=== PATIENT | female | born 1980 | race Native Hawaiian/Other Pacific Islander ===

== ENCOUNTER 2018-03-15 19:51 | Emergency (ER) | payer MEDICAID ==
[2018-03-15 20:06] VITALS: BP 129/81
--- NOTE | 2018-03-15 20:15 | ED Physician Documentation ---
PD HPI LOWER EXT INJURY - Stated complaint Stated Complaint: L ANKLE PX - Chief complaint Chief Complaint: Ext Problem - History obtained from History obtained from: Patient - History of Present Illness PD HPI LOW EXT INJURY LOCATION: Left, Ankle Type of injury: Twist Where injury occurred: Home Timing - onset: Today, Yesterday Timing - details: Abrupt onset Worsened by: Moving, Palpating Similar symptoms before: No diagnosis Recently seen: Not recently seen - Additional information Additional information: patient is a 37 year old female with no significant past medical history who is presenting to the emergency department for ankle pain. Patient states that she originally twisted her ankle yesterday walking down the steps. patient reports that again today she did the same thing hurting the outside of her left ankle. patient denies any other trauma. Review of Systems Ten Systems: 10 systems reviewed and negative Musculoskeletal: reports: Extremity pain, Joint pain, Extremity swelling PD PAST MEDICAL HISTORY - Past Medical History Past Medical History: No - Past Surgical History Past Surgical History: No - Present Medications Home Medications: Ambulatory Orders Medication Instructions Recorded Confirmed No Known Home Medications [No 03/15/18 03/15/18 Known Home Medications] - Allergies Allergies/Adverse Reactions: Allergies Allergy/AdvReac Type Severity Reaction Status Date / Time duloxetine [From Cymbalta] Allergy Hives Verified 03/15/18 20:02 Penicillins Allergy Hives Verified 03/15/18 20:01 - Social History Does the pt smoke?: No Smoking Status: Never smoker Does the pt drink ETOH?: No Does the pt have substance abuse?: No - Immunizations Immunizations are current?: Yes PD ED PE NORMAL - Vitals Vital signs reviewed: Yes - General General: Alert and oriented X 3 - HEENT HEENT: Atraumatic - Cardiac Cardiac: RRR - Respiratory Respiratory: No respiratory distress - Abdomen Abdomen: Non distended - Derm Derm: Normal color - Neuro Neuro: Alert and oriented X 3 Eye Opening: Spontaneous PD ED PE EXPANDED - Extremities Extremities: Left ankle (tenderness to palpation over left lateral maleolus ) Results - Vitals Vitals: Vital Signs - 24 hr 03/15/18 19:53 Temperature 36.5 C Heart Rate 83 Respiratory 17 Rate Blood Pressure 129/81 H O2 Saturation 97 Oxygen O2 Source Room air - Rads (name of study) left ankle x-ray Radiology: Final report received (normal ), EMP read contemporaneously PD MEDICAL DECISION MAKING - ED course Complexity details: reviewed old records, reviewed results, re-evaluated patient , considered differential, d/w patient ED course: Patient was seen and examined at bedside. Patient could not be ruled out by [place] ankle rules. patient was sent for imaging. When patient returned the results were reviewed. there was no acute fracture or dislocation. Patient was placed in an kirby bandage and was stable for discharge with outpatient follow up. Departure - Departure Disposition: 01 Home, Self Care Clinical Impression: Ankle sprain Condition: Good Instructions: ED Sprain Ankle Follow-Up: primary,care provider [Other] - As Needed Comments: Your diagnostics today were within normal limits. there is no acute fracture or dislocation. You should ice your ankle at least 4 times a day. You can take motrin or tylenol as needed for pain. You should elevate your ankle as well, and wear the kirby bandage for support. You should follow up with your doctor if your symptoms persist. you may return to the emergency department at any time for new, worsening or uncontrollable symptoms.
[2018-03-15] MEDS ORDERED: IBUPROFEN 600 MG TABLET PO STA (20:22)
--- NOTE | 2018-03-15 20:43 | XRAY Preliminary Report ---
Exam: XR ANKLE 3 VIEW LT IMPRESSION: 1. No fracture or malalignment. 2. Ankle mortise intact. 3. Mild ankle swelling noted. 4. If patient remains symptomatic, recommend radiographs in 10-14 days. [facility] SITE ID: [id number]
--- NOTE | 2018-03-15 20:46 | XRAY Report ---
EXAM: LEFT ANKLE RADIOGRAPHY EXAM DATE: 03/15/2018 08:21 PM. CLINICAL HISTORY: Twisted the ankle. COMPARISON: None. TECHNIQUE: 3 views. FINDINGS: Bones: Normal. No fractures or bone lesions. Joints: Normal. No effusion. No subluxations. The ankle mortise is normally aligned. Soft Tissues: Mild ankle swelling noted. IMPRESSION: 1. No fracture or malalignment. 2. Ankle mortise intact. 3. Mild ankle swelling noted. 4. If patient remains symptomatic, recommend radiographs in 10-14 days. [facility] Referring Provider Line: [phone] SITE ID: [id number]
== END 2018-03-15 20:37 | disposition home or self-care (01) ==
LOC: ED 19:51
DX: S93.402A Sprain of unspecified ligament of left ankle, initial encounter (principal); X50.1XXA Overexertion from prolonged static or awkward postures, initial encounter; Y92.009 Unspecified place in unspecified non-institutional (private) residence as the place of occurrence of the external cause
CPT/HCPCS: 73610; 99283; A9270

== ENCOUNTER 2018-05-08 23:18 | Emergency (ER) | payer MEDICAID ==
[2018-05-08 23:31] VITALS: BP 116/69
--- NOTE | 2018-05-09 01:26 | ED Physician Documentation ---
PD HPI HEENT - Stated complaint Stated Complaint: THROAT PX - Chief complaint Chief Complaint: Heent - History obtained from History obtained from: Patient - History of Present Illness Timing - onset: How many days ago (5) Timing - details: Gradual onset Location: Throat Worsens: Swalllowing Recently seen: Not recently seen - Additional information Additional information: c/o five days of gradually worsening sore throat, worse with swallowing. mild cough. inadequate relief of sore throat with OTC medications. Review of Systems Constitutional: denies: Fever Nose: denies: Congestion, Sinus pressure / pain Throat: reports: Sore throat Respiratory: reports: Cough (mild) PD PAST MEDICAL HISTORY - Past Medical History Past Medical History: No - Past Surgical History Past Surgical History: No - Present Medications Home Medications: Ambulatory Orders Medication Instructions Recorded Confirmed No Known Home Medications [No 03/15/18 03/15/18 Known Home Medications] - Allergies Allergies/Adverse Reactions: Allergies Allergy/AdvReac Type Severity Reaction Status Date / Time duloxetine [From Cymbalta] Allergy Hives Verified 05/08/18 23:31 Penicillins Allergy Hives Verified 05/08/18 23:31 - Social History Does the pt smoke?: No Smoking Status: Never smoker Does the pt drink ETOH?: No Does the pt have substance abuse?: No - Immunizations Immunizations are current?: Yes PD ED PE NORMAL - Vitals Vital signs reviewed: Yes - General General: Alert and oriented X 3, No acute distress, Well developed/nourished - HEENT HEENT: Ears normal, Moist mucous membranes, Other (mild posterior oropharyngeal erythema without exudate or edema) - Neck Neck: Supple, no meningeal sign Results - Vitals Vitals: Vital Signs - 24 hr 05/08/18 23:28 Temperature 36.4 C L Heart Rate 83 Respiratory 17 Rate Blood Pressure 116/69 O2 Saturation 97 Oxygen O2 Source Room air - Labs Labs: Laboratory Tests 05/08/18 23:34 Group A Strep Rapid Negative PD MEDICAL DECISION MAKING - ED course Complexity details: reviewed results, considered differential, d/w patient - Sepsis Event Vital Signs: Vital Signs - 24 hr 05/08/18 23:28 Temperature 36.4 C L Heart Rate 83 Respiratory 17 Rate Blood Pressure 116/69 O2 Saturation 97 Oxygen O2 Source Room air Departure - Departure Disposition: 01 Home, Self Care Clinical Impression: Pharyngitis Condition: Good Instructions: ED Pharyngitis Viral Report Pending Discharge Date/Time: 05/09/18 02:04
[2018-05-09] MEDS ORDERED: DEXAMETHASONE 10 MG/ML VIAL PO STA (01:41)
[2018-05-09] MEDS ORDERED: HYDROcod/ACET 5/325 Prepack 4 PO STA (01:41)
== END 2018-05-09 02:04 | disposition home or self-care (01) ==
LOC: ED 23:18
DX: J02.9 Acute pharyngitis, unspecified (principal)
CPT/HCPCS: 87070; 87430; 99283

== ENCOUNTER 2018-08-14 04:00 | Emergency (ER) | payer MEDICAID ==
[2018-08-14 04:22] LABS: BILIRUBIN,URINE NEGATIVE (NEGATIVE); GLUCOSE, URINE (UA) NEGATIVE (NEGATIVE); KETONES,URINE (UA) NEGATIVE (NEGATIVE); LEUKOCYTE ESTERASE, URINE NEGATIVE (NEGATIVE); NITRITE,URINE NEGATIVE (NEGATIVE); OCCULT BLOOD,URINE TRACE-INTA (NEGATIVE); PH,URINE 5.5 PH (5.0-7.5); PROTEIN,URINE NEGATIVE (NEGATIVE); UROBILINOGEN,URINE 0.2 (NORMAL) E.U./dL (NORMAL)
[2018-08-14 04:24] LABS: CLARITY,URINE CLEAR (CLEAR); HCG UR QUAL NEGATIVE
[2018-08-14] MEDS ORDERED: KETOROLAC 60 MG/2 ML VIAL IVP STA (04:38)
--- NOTE | 2018-08-14 04:41 | ED Physician Documentation ---
PD HPI ABD PAIN - Stated complaint Stated Complaint: R SIDE PAIN - Chief complaint Chief Complaint: Abd Pain - History obtained from History obtained from: Patient - History of Present Illness Timing - onset: Enter time (0100), Today Timing - duration: Hours Timing - details: Abrupt onset, Still present Quality: Sharp, Pain Location: RLQ Radiation: No: Chest, Right flank Improved by: Laying still Worsened by: Moving, Position, Palpation Associated symptoms: Nausea. No: Vomiting Similar symptoms before: Has not had sx before Recently seen: Not recently seen - Additional information Additional information: 38-year-old female with a history of thyroid cancer and status post cholecystectomy has developed acute right lower quadrant abdominal pain early this morning while sitting and watching television. She states that the pain is worse if she is up and around it is present all the time and is about a 9 out of 10 when she is at rest. She states that she has had some pain in her upper abdomen every time that she eats for the past week. This is accompanied by gas and eructations. Review of Systems Constitutional: denies: Fever Eyes: denies: Decreased vision Ears: denies: Ear pain Nose: denies: Congestion Throat: denies: Sore throat Cardiac: denies: Chest pain / pressure, Palpitations Respiratory: denies: Dyspnea, Cough GI: reports: Abdominal Pain. denies: Vomiting, Constipation, Diarrhea : denies: Dysuria, Frequency Skin: denies: Rash Musculoskeletal: denies: Neck pain, Back pain, Extremity pain Neurologic: denies: Generalized weakness, Focal weakness, Numbness PD PAST MEDICAL HISTORY - Past Medical History Past Medical History: Yes Cardiovascular: None Respiratory: None Neuro: None Endocrine/Autoimmune: Other GI: None [place] ROUTEMAN: None : None HEENT: None Psych: None Musculoskeletal: None Derm: None Other Past Medical History: THYROID CANCER.... 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 - Present Medications Home Medications: Ambulatory Orders Medication Instructions Recorded Confirmed No Known Home Medications 03/15/18 03/15/18 - Allergies Allergies/Adverse Reactions: Allergies Allergy/AdvReac Type Severity Reaction Status Date / Time duloxetine [From Cymbalta] Allergy Hives Verified 05/08/18 23:31 Penicillins Allergy Hives Verified 05/08/18 23:31 tramadol AdvReac Unknown Verified 08/14/18 04:11 - Social History Does the pt smoke?: No Smoking Status: Never smoker Does the pt drink ETOH?: No Does the pt have substance abuse?: No - Immunizations Immunizations are current?: Yes - POLST Patient has POLST: No PD ED PE NORMAL - Vitals Vital signs reviewed: Yes (hypertensive) - General General: Alert and oriented X 3, No acute distress, Well developed/nourished, Other (38 y/o obese female laying on her left side in a position.) - HEENT HEENT: Atraumatic, PERRL, EOMI - Neck Neck: Supple, no meningeal sign, No bony TTP - Cardiac Cardiac: RRR, No murmur - Respiratory Respiratory: No respiratory distress, Clear bilaterally - Abdomen Abdomen: Soft, Other (There is specific right lower quadrant tenderness to palpation that is reproducible. There is no epigastric tenderness and there is no right upper quadrant tenderness. 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, No motor deficit, No sensory deficit, Normal speech Eye Opening: Spontaneous Motor: Obeys Commands Verbal: Oriented GCS Score: 15 - Psych Psych: Normal mood, Normal affect Results - Vitals Vitals: Vital Signs - 24 hr 08/14/18 04:08 Temperature 36.8 C Heart Rate 81 Respiratory 17 Rate Blood Pressure 129/99 H O2 Saturation 99 Oxygen O2 Source Room air - Labs Labs: Laboratory Tests 08/14/18 04:19 Urine Color YELLOW Urine Clarity CLEAR Urine pH 5.5 Ur Specific [place] 1.020 Urine Protein NEGATIVE Urine Glucose (UA) NEGATIVE Urine Ketones NEGATIVE Urine Occult Blood TRACE-INTA Urine Nitrite NEGATIVE Urine Bilirubin NEGATIVE Urine Urobilinogen 0.2 (NORMAL) Ur Leukocyte Esterase NEGATIVE Ur Microscopic Review NOT INDICATED Urine Culture Comments NOT INDICATED Urine HCG, Qual NEGATIVE - Rads (name of study) CT abd/pel without Radiology: Prelim report reviewed (Impression: 1. No urinary tract stones or obstruction. 2. post cholecystectomy.), EMP read indepedently, See rad report Procedures - Bedside sono Bedside sono by EMP: With use of bedside ultrasound the right kidney is imaged and it is sonographically nontender and without evidence of hydronephrosis. PD MEDICAL DECISION MAKING - ED course Complexity details: reviewed results, re-evaluated patient, considered differential, d/w patient, d/w family ED course: 38-year-old female arrives here with her adult son with right lower quadrant abdominal pain. She has not had fever or vomiting her pain was sudden in onset but she does not have radiating pain to the flank and she does not have evidence of hydronephrosis on bedside examination. She is tender specifically in the right lower quadrant and CT scanning of the abdomen and pelvis is undertaken to rule out appendicitis. She is administered Toradol 30 mg intravenously. She has little relief with the toradal and she is administered dilaudid with some improvement. CT scan is without evidence for appendicitis and pelvic ultrasound is undertaken to rule out torsion. Care is turned over to Dr. Day at shift change. - Sepsis Event Vital Signs: Vital Signs - 24 hr 08/14/18 04:08 Temperature 36.8 C Heart Rate 81 Respiratory 17 Rate Blood Pressure 129/99 H O2 Saturation 99 Oxygen O2 Source Room air
[2018-08-14] MEDS ORDERED: KETOROLAC 30 MG/ML VIAL ONE (04:49)
[2018-08-14 04:51] LABS: BASOPHILS # (AUTO) 0.1 10^3/uL (0.0-0.1); BASOPHILS % (AUTO) 1.1 %; EOSINOPHILS # (AUTO) 0.2 10^3/uL (0.0-0.7); HGB - HEMOGLOBIN 14.8 g/dL (12.0-16.0); LYMPHOCYTES # (AUTO) 3.8 10^3/uL (1.5-3.5); MEAN CORPUSCULAR HEMOGLOBIN 29.7 pg (27.0-31.0); MEAN CORPUSCULAR HGB CONC 34.1 g/dL (32.0-36.0); MEAN CORPUSCULAR VOLUME 87.1 fL (81.0-99.0); MEAN PLATELET VOLUME 7.9 fL (7.9-10.8); MONOCYTES # (AUTO) 0.7 10^3/uL (0.0-1.0); NEUTROPHILS # (AUTO) 6.3 10^3/uL (1.5-6.6); NEUTROPHILS % (AUTO) 56.9 %; PLT - PLATELET COUNT 237 10^3/uL (130-450); RED BLOOD COUNT 4.97 10^6/uL (4.20-5.40); RED CELL DISTRIBUTION WIDTH 16.3 % (12.0-15.0); WHITE BLOOD COUNT 11.1 x10^3/uL (4.8-10.8)
[2018-08-14 05:02] LABS: ALBUMIN 3.8 g/dL (3.2-5.5); ALBUMIN/GLOBULIN RATIO 1.2 (1.0-2.2); BILIRUBIN,TOTAL 0.5 mg/dL (0.2-1.0); CALCIUM 8.3 mg/dL (8.5-10.3); CREATININE 0.8 mg/dL (0.4-1.0); TOTAL PROTEIN 7.1 g/dL (6.7-8.2)
--- NOTE | 2018-08-14 05:15 | CT Report ---
Reason: RLQ pain Procedure Date: 08/14/2018 Accession Number: [id number] / [id number] Procedure: CT - Abdomen/Pelvis W/O CPT Code: FULL RESULT: EXAM: CT ABDOMEN AND PELVIS (CT KUB) EXAM DATE: 08/14/2018 05:07 AM. CLINICAL HISTORY: Right lower quadrant pain. COMPARISONS: None. TECHNIQUE: Routine axial helical CT imaging was performed through the abdomen and pelvis without IV contrast. Reconstructions: Coronal and sagittal. In accordance with CT protocol optimization, one or more of the following dose reduction techniques were utilized for this exam: automated exposure control, adjustment of mA and/or KV based on patient size, or use of iterative reconstructive technique. FINDINGS: Lung Bases: Unremarkable. Right Kidney/Ureter: No stones, hydronephrosis, or hydroureter. No perinephric fat stranding. Left Kidney/Ureter: No stones, hydronephrosis, or hydroureter. No perinephric fat stranding. Other Solid Organs: Noncontrast images of the solid organs are grossly unremarkable. Gallbladder/Bile Ducts: Unremarkable post-cholecystectomy. Peritoneal Cavity: No free fluid, free air or michela adenopathy. Bowel is grossly unremarkable with note of a normal appendix. Pelvic Organs: No bladder stones or wall thickening. Noncontrast images of the visualized pelvic organs are unremarkable. Post tubal ligation. Vasculature: Unremarkable. Other: None. IMPRESSION: 1. No urinary tract stones or obstruction. 2. Post-cholecystectomy. [facility]
[2018-08-14] MEDS ORDERED: HYDROmorphone 1 MG/ML CARPUJECT IVP STA (05:38)
[2018-08-14] MEDS ORDERED: ONDANSETRON 4 MG/2 ML VIAL IVP STA (05:38)
--- NOTE | 2018-08-14 07:30 | ED Physician Documentation ---
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 - Present Medications Home Medications: Ambulatory Orders Medication Instructions Recorded Confirmed Dicyclomine [Bentyl] 10 mg PO Q8H PRN #20 capsule 08/14/18 Naproxen 250 mg PO BIDWM PRN #14 tablet 08/14/18 - Allergies Allergies/Adverse Reactions: Allergies Allergy/AdvReac Type Severity Reaction Status Date / Time duloxetine [From Cymbalta] Allergy Hives Verified 05/08/18 23:31 Penicillins Allergy Hives Verified 05/08/18 23:31 tramadol AdvReac Unknown Verified 08/14/18 04:11 - Social History Does the pt smoke?: No Smoking Status: Never smoker Does the pt drink ETOH?: No Does the pt have substance abuse?: No - Immunizations Immunizations are current?: Yes - POLST Patient has POLST: No Results - Vitals Vitals: Vital Signs - 24 hr 08/14/18 08/14/18 08/14/18 04:08 04:54 05:49 Temperature 36.8 C Heart Rate 81 70 Respiratory 17 16 15 Rate Blood Pressure 129/99 H 107/76 O2 Saturation 99 95 08/14/18 08/14/18 06:23 06:51 Temperature Heart Rate 70 68 Respiratory 14 16 Rate Blood Pressure 94/67 112/76 O2 Saturation 95 97 Oxygen O2 Source Room air - Labs Labs: Laboratory Tests 08/14/18 08/14/18 08/14/18 04:19 04:45 04:45 WBC 11.1 H RBC 4.97 Hgb 14.8 Hct 43.3 MCV 87.1 MCH 29.7 MCHC 34.1 RDW 16.3 H Plt Count 237 MPV 7.9 Neut # (Auto) 6.3 Lymph # (Auto) 3.8 H [place] # (Auto) 0.7 Eos # (Auto) 0.2 Baso # (Auto) 0.1 Absolute Nucleated RBC 0.01 Nucleated RBC % 0.1 Sodium 140 Potassium 3.9 Chloride 104 Carbon Dioxide 27 Anion Gap 9.0 BUN 14 Creatinine 0.8 Estimated GFR (MDRD) 79 L Glucose 80 Calcium 8.3 L Total Bilirubin 0.5 AST 19 ALT 16 Alkaline Phosphatase 44 Total Protein 7.1 Albumin 3.8 Globulin 3.3 Albumin/Globulin Ratio 1.2 Lipase 37 Urine Color YELLOW Urine Clarity CLEAR Urine pH 5.5 Ur Specific [place] 1.020 Urine Protein NEGATIVE Urine Glucose (UA) NEGATIVE Urine Ketones NEGATIVE Urine Occult Blood TRACE-INTA Urine Nitrite NEGATIVE Urine Bilirubin NEGATIVE Urine Urobilinogen 0.2 (NORMAL) Ur Leukocyte Esterase NEGATIVE Ur Microscopic Review NOT INDICATED Urine Culture Comments NOT INDICATED Urine HCG, Qual NEGATIVE PD MEDICAL DECISION MAKING - ED course ED course: assumed care 7 AM 38 y/o f sp philipp and tubal to ED with abrupt onset pelvic pain labs and UA normal neg HCG CTAP neg for renal colic and appy now in sono to rule out torsion went to see pt after sono she describes a week of abd pain, initially upper, now lower and localized to right lower abd fatigue yesterday nausea no vomit or diarrhea no dc or vag bleed no fever exam RRR CTAB soft TTP very low RLQ s rebound or guarding, no palp hernia pelvic - no external lesions, no discharge, nl cervic, no CMT, cultures sent but now c/w PID CT - no renal ureteral stones, nl appendix, no acute process, s/p philipp sono = normal, no cysts, no torsion, no FF labs fine except WBC 11 explained to pt etiology unclear but have ruled out appy, cyst torsion/rupture, renal colic, UTI pyelo - Sepsis Event Vital Signs: Vital Signs - 24 hr 08/14/18 08/14/18 08/14/18 04:08 04:54 05:49 Temperature 36.8 C Heart Rate 81 70 Respiratory 17 16 15 Rate Blood Pressure 129/99 H 107/76 O2 Saturation 99 95 08/14/18 08/14/18 06:23 06:51 Temperature Heart Rate 70 68 Respiratory 14 16 Rate Blood Pressure 94/67 112/76 O2 Saturation 95 97 Oxygen O2 Source Room air Departure - Departure Disposition: 01 Home, Self Care Clinical Impression: Abdominal pain Qualifiers: Abdominal location: right lower quadrant Qualified Code(s): R10.31 - Right lower quadrant pain Condition: Good Instructions: ED Abdominal Pain Unkn Cause Follow-Up: [facility] [Provider Group] (call for an ER follow up this week ) Prescriptions: Dicyclomine [Bentyl] 10 mg PO Q8H PRN #20 capsule PRN Reason: stomach cramps Naproxen 250 mg PO BIDWM PRN #14 tablet PRN Reason: Pain Comments: All of the tests today came back fine. The urine showed no infection or blood to suggest a kidney stone And negative tests makes an ectopic very very unlikely The blood work including kidney liver and pancreas function was fine. The ultrasound did not show any ovarian cyst, ruptured torsed or otherwise The CT scan did not show any kidney stones, no appendicitis, no pancreatitis, no aneurysm, no bowel infection/perforation/obstruction, no internal bleeding or free fluid, normal size ovaries I am not sure what is causing the pain But given the extensive and reassuring workup, I do not think you need surgery or admission or antibiotics. I think it is safe for you to go home and to get any further work up as an outpatient It is very possible that over time, new or changing symptoms may develop that lead to a diagnosis not presently apparent. That is why close follow up with your PMD for a recheck is very important - since you do not have a PMD, please call [facility] to schedule ER follow up You can try a medication called bentyl to ease the pains. Can also take naproxen twice a day with food I do not recommend any strong pain killers because I do not want to mask changing or worsening symptoms Return if worse Forms: Activity restrictions
--- NOTE | 2018-08-14 08:42 | Ultrasound Report ---
Reason: RLQ pain Procedure Date: 08/14/2018 Accession Number: [id number] / [id number] Procedure: US - Pelvic w/Transvag+Doppler Ltd CPT Code: FULL RESULT: EXAM: PELVIC ULTRASOUND EXAM DATE: 08/14/2018 07:47 AM. CLINICAL HISTORY: RLQ pain. COMPARISON: None. TECHNIQUE: Realtime transabdominal pelvic scan performed to identify the uterus and adnexa and as an overview of other pelvic structures, followed by transvaginal scan to provide greater detail of the uterus and adnexa, with static image documentation. FINDINGS: Uterus: 9.2 x 4.8 x 6 cm, volume 139 cc. Anteverted position. Normal overall size and echotexture. Masses: None. Endometrium: 8 mm. Normal. Cervix: Unremarkable. Right Ovary: 2.5 x 2 x 1.6 cm, volume 4.2 cc. Normal echotexture and blood flow. Left Ovary: 2.9 x 1.6 x 2 cm, volume 4.9 cc. Normal echotexture and blood flow. Free Fluid: None. Other: None. IMPRESSION: Normal pelvic ultrasound. [facility]
[2018-08-14] MEDS ORDERED: oxyCODONE 5 MG TABLET PO STA (09:51)
[2018-08-14 12:02] VITALS: BP 109/84
== END 2018-08-14 11:10 | disposition home or self-care (01) ==
LOC: ED 04:00
DX: R10.31 Right lower quadrant pain (principal); R10.2 Pelvic and perineal pain; R11.0 Nausea; Z85.850 Personal history of malignant neoplasm of thyroid; Z90.49 Acquired absence of other specified parts of digestive tract
CPT/HCPCS: 74176; 76830; 76856; 80053; 81003; 81025; 83690; 85025; 87210; 87491; 87591; 93976; 96374; 96375; 99283; 99285; A9270; J1170; 81001; 87086

== ENCOUNTER 2018-10-06 23:55 | Emergency (ER) | payer MEDICAID ==
[2018-10-07 00:02] VITALS: BP 120/87
[2018-10-07] MEDS ORDERED: DEXAMETHASONE 10 MG/ML VIAL PO STA (01:21)
--- NOTE | 2018-10-07 01:56 | XRAY Report ---
Reason: pain after excessive use Procedure Date: 10/07/2018 Accession Number: [id number] / [id number] Procedure: XR - Knee 4 View LT CPT Code: FULL RESULT: EXAM: LEFT KNEE RADIOGRAPHY EXAM DATE: 10/07/2018 01:48 AM. CLINICAL HISTORY: Pain after excessive use. COMPARISON: None. TECHNIQUE: 3 views. FINDINGS: Bones: Normal. No fractures or bone lesions. Joints: Normal. No effusion. No subluxations. Soft Tissues: Normal. No soft tissue swelling. IMPRESSION: Normal knee radiography. [facility]
--- NOTE | 2018-10-07 02:13 | ED Physician Documentation ---
PD HPI LOWER EXT INJURY - Stated complaint Stated Complaint: L KNEE PX - Chief complaint Chief Complaint: Ext Problem - History obtained from History obtained from: Patient, Family - History of Present Illness PD HPI LOW EXT INJURY LOCATION: Left, Knee Type of injury: Other (walking with heals on Thanksgiving) Where injury occurred: Home Timing - onset: How many days ago (5) Timing - duration: Days (5) Improved by: Rest, Immobilization Worsened by: Moving, Palpating Associated symptoms: Swelling Contributing factors: No: Anticoagulated Similar symptoms before: Has not had sx before Recently seen: Not recently seen - Additional information Additional information: 38-year-old female with no specific past medical history has developed pain in her left knee. She feels she has some swelling and there she has pain to flex and extend the knee. She is able to bear weight on this but with pain again. She does state that she was on high heels over Thanksgiving and believes this may be the reason she is having this issue. Review of Systems Constitutional: denies: Fever, Chills, Myalgias, Fatigue Eyes: denies: Decreased vision Ears: denies: Ear pain Nose: denies: Congestion Throat: denies: Sore throat Cardiac: denies: Chest pain / pressure GI: denies: Nausea, Vomiting : denies: Dysuria Skin: denies: Rash Musculoskeletal: reports: Extremity pain, Joint pain, Pain with weight bearing. denies: Neck pain, Back pain PD PAST MEDICAL HISTORY - Past Medical History Cardiovascular: None Respiratory: None Neuro: None Endocrine/Autoimmune: Other GI: None INTERNAL MEDICINE HOSPITALIST: None : None HEENT: None Psych: None Musculoskeletal: None Derm: None - Past Surgical History Past Surgical History: Yes General: Cholecystectomy, Other /INTERNAL MEDICINE HOSPITALIST: Tubal ligation - Present Medications Home Medications: Ambulatory Orders Medication Instructions Recorded Confirmed Dicyclomine [Bentyl] 10 mg PO Q8H PRN #20 capsule 08/14/18 Naproxen 250 mg PO BIDWM PRN #14 tablet 08/14/18 - Allergies Allergies/Adverse Reactions: Allergies Allergy/AdvReac Type Severity Reaction Status Date / Time duloxetine [From Cymbalta] Allergy Hives Verified 05/08/18 23:31 Penicillins Allergy Hives Verified 05/08/18 23:31 tramadol AdvReac Unknown Verified 10/09/18 04:11 - Social History Does the pt smoke?: No Smoking Status: Never smoker Does the pt drink ETOH?: No Does the pt have substance abuse?: No - Immunizations Immunizations are current?: Yes - POLST Patient has POLST: No PD ED PE NORMAL - Vitals Vital signs reviewed: Yes (normal ) - General General: Alert and oriented X 3, No acute distress, Well developed/nourished - HEENT HEENT: Atraumatic, PERRL, EOMI - Respiratory Respiratory: No respiratory distress - Derm Derm: Normal color, Warm and dry, No rash - Extremities Extremities: No deformity, No edema, Other (The knee is with pain to palpation of the medial joint line and a small palpable effusion. There is pain to ROM testing and the ligaments are stable. distal n/v is intact. 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, No motor deficit, No sensory deficit, Normal speech Eye Opening: Spontaneous Motor: Obeys Commands Verbal: Oriented GCS Score: 15 - Psych Psych: Normal mood, Normal affect Results - Vitals Vitals: Vital Signs - 24 hr 10/07/18 10/07/18 00:01 00:05 Temperature 36.3 C L Heart Rate 87 87 Respiratory 18 18 Rate Blood Pressure 120/87 H 120/87 H O2 Saturation 96 96 Oxygen O2 Source Room air - Rads (name of study) L knee Radiology: Prelim report reviewed (Impression normal knee radiography), EMP read indepedently, See rad report PD MEDICAL DECISION MAKING - ED course Complexity details: reviewed results, re-evaluated patient, considered differential, d/w patient, d/w family ED course: 38-year-old female with what appears to be reactive arthritis to the left knee is administered Dexamethasone 10 mg orally here. Her x-ray is unremarkable. I do believe she has a small joint effusion that is palpable and I do not have any suspicion for septic arthritis. Departure - Departure Disposition: 01 Home, Self Care Clinical Impression: Reactive arthritis of knee Condition: Stable Instructions: ED Degenerative Joint Disease Follow-Up: [facility] [Provider Group]
== END 2018-10-07 02:45 | disposition home or self-care (01) ==
LOC: ED 23:55
DX: M13.862 Other specified arthritis, left knee (principal)
CPT/HCPCS: 99283

== ENCOUNTER 2018-10-10 13:12 | Outpatient (CLI) | payer MEDICAID ==
[2018-10-10 19:07] LABS: BASOPHILS # (AUTO) 0.1 10^3/uL (0.0-0.1); BASOPHILS % (AUTO) 0.7 %; EOSINOPHILS # (AUTO) 0.2 10^3/uL (0.0-0.7); EOSINOPHILS % (AUTO) 2.1 %; HGB - HEMOGLOBIN 14.8 g/dL (12.0-16.0); LYMPHOCYTES # (AUTO) 3.2 10^3/uL (1.5-3.5); LYMPHOCYTES % (AUTO) 30.1 %; MEAN CORPUSCULAR HEMOGLOBIN 29.9 pg (27.0-31.0); MEAN CORPUSCULAR HGB CONC 32.8 g/dL (32.0-36.0); MEAN CORPUSCULAR VOLUME 91.1 fL (81.0-99.0); MEAN PLATELET VOLUME 8.3 fL (7.9-10.8); MONOCYTES # (AUTO) 0.6 10^3/uL (0.0-1.0); MONOCYTES % (AUTO) 5.7 %; NEUTROPHILS # (AUTO) 6.5 10^3/uL (1.5-6.6); NEUTROPHILS % (AUTO) 61.4 %; PLT - PLATELET COUNT 250 10^3/uL (130-450); RED BLOOD COUNT 4.95 10^6/uL (4.20-5.40); RED CELL DISTRIBUTION WIDTH 15.8 % (12.0-15.0); WHITE BLOOD COUNT 10.5 x10^3/uL (4.8-10.8)
[2018-10-10 19:32] LABS: BUN - BLOOD UREA NITROGEN 12 mg/dL (6-20); CALCIUM 8.5 mg/dL (8.5-10.3); CARBON DIOXIDE - CO2 25 mmol/L (21-32); CHLORIDE 101 mmol/L (101-111); CHOL/HDL RATIO 3.4 (<4.4); CHOLESTEROL 214 mg/dL; CREATININE 0.8 mg/dL (0.4-1.0); GFR - MDRD 79 (>89); GLUCOSE 84 mg/dL (70-100); HDL CHOLESTEROL 63 mg/dL; LDL CHOLESTEROL,CALCULATED 115 mg/dL; LDL/HDL RATIO 1.8 (<4.4); LIPASE 27 U/L (22-51); SODIUM 135 mmol/L (135-145); VLDL CHOLESTEROL 36 mg/dL
[2018-10-10 20:22] LABS: THYROID STIMULATING HORMONE 68.46 uIU/mL (0.34-5.60)
[2018-10-10 21:00] LABS: FREE T4 (FREE THYROXINE) 0.4 ng/dL (0.58-1.64)
== END 2018-10-10 23:59 | disposition home or self-care (01) ==
LOC: LAB.N 13:12
PROVIDERS: ATTEND Physician Assistant Medical
DX: Z00.00 Encounter for general adult medical examination without abnormal findings (principal); E03.9 Hypothyroidism, unspecified; R10.9 Unspecified abdominal pain
CPT/HCPCS: 36415; 80048; 80061; 83690; 83721; 84439; 84443; 85025

== ENCOUNTER 2018-11-08 20:49 | Emergency (ER) | payer MEDICAID ==
--- NOTE | 2018-11-08 21:12 | ED Physician Documentation ---
PD HPI Fall - Stated complaint Stated Complaint: GLF KNEE/HAND PX - Chief complaint Chief Complaint: Ext Problem - History obtained from History obtained from: Patient - History of Present Illness Mechanism of injury: Lost balance Fall distance: Standing position Where injury occurred: Home Timing - onset: Enter time (18:30), Today Injury(ies) location: Left Uppper Extremity, Right Lower Extremity, Left Lower Extremity Pain level now: 5 Quality of pain: Pain Associated symptoms: No: LOC, Neck pain Worsens with: Movement, Palpation Contributing factors: No: Anticoagulated, Intoxicated - Additional information Additional information: while walking in kitchen this evening, became lightheaded and dizzy, causing her to lose balance and fall, c/o bilateral knee pain and left elbow Review of Systems Musculoskeletal: reports: Extremity pain. 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 : None HEENT: None Psych: None Musculoskeletal: None Derm: None - Past Surgical History Past Surgical History: Yes General: Cholecystectomy, Other /TOOTH CUTTER SPUR: Tubal ligation - Present Medications Home Medications: Ambulatory Orders Medication Instructions Recorded Confirmed Hydrocodone/Acetaminophen 1 - 2 each PO Q6H PRN #14 tablet 11/08/18 [Hydrocodon-Acetaminophen 5-325] Levothyroxine [Synthroid] 150 mcg PO QDAC 11/08/18 11/08/18 - Allergies Allergies/Adverse Reactions: Allergies Allergy/AdvReac Type Severity Reaction Status Date / Time duloxetine [From Cymbalta] Allergy Hives Verified 11/08/18 20:55 Penicillins Allergy Hives Verified 11/08/18 20:55 tramadol AdvReac Unknown Verified 11/08/18 20:55 - Social History Does the pt smoke?: No Smoking Status: Never smoker Does the pt drink ETOH?: No Does the pt have substance abuse?: No - Immunizations Immunizations are current?: Yes - POLST Patient has POLST: No PD ED PE NORMAL - Vitals Vital signs reviewed: Yes - General General: Alert and oriented X 3, No acute distress, Well developed/nourished - Neck Neck: No bony TTP - Extremities Extremities: No edema - Neuro Neuro: Alert and oriented X 3, No motor deficit, No sensory deficit PD ED PE EXPANDED - Extremities Extremities: Other (bilateral knee (direct patellar) tenderness to palpation. swelling, mild echymosis left knee) SHILPI UE/Hands Visual: 1 - bruising, abrasion, swelling, tenderness Results - Vitals Vitals: Vital Signs - 24 hr 11/08/18 11/08/18 20:51 22:44 Temperature 36.2 C L Heart Rate 85 80 Respiratory 18 16 Rate Blood Pressure 141/91 H 109/79 O2 Saturation 97 94 Oxygen O2 Source Room air - Rads (name of study) left elbow xrays Radiology: Prelim report reviewed bilateral knee xrays Radiology: Prelim report reviewed, See rad report PD MEDICAL DECISION MAKING - ED course Complexity details: reviewed results, re-evaluated patient, considered differential, d/w patient Departure - Departure Disposition: 01 Home, Self Care Clinical Impression: Contusion, multiple sites, Abrasion Fall Qualifiers: Encounter type: initial encounter Qualified Code(s): W19.XXXA - Unspecified fall, initial encounter Condition: Good Instructions: ED Abrasion, ED Contusion Elbow, ED Contusion Lower Ext Follow-Up: Mohinder Ahmadi PA-C [Primary Care Provider] - Prescriptions: Hydrocodone/Acetaminophen [Hydrocodon-Acetaminophen 5-325] 1 - 2 each PO Q6H PRN #14 tablet PRN Reason: pain Discharge Date/Time: 11/08/18 22:44
[2018-11-08] MEDS ORDERED: HYDROcod/ACETAM 5/325 MG TABLET PO STA (21:22)
--- NOTE | 2018-11-08 22:19 | XRAY Report ---
Reason: fall, pain Procedure Date: 11/08/2018 Accession Number: [id number] / [id number] Procedure: XR - Elbow 3 View LT CPT Code: FULL RESULT: EXAM: LEFT ELBOW RADIOGRAPHY EXAM DATE: 11/08/2018 09:28 PM. CLINICAL HISTORY: Fall, pain. COMPARISON: None. TECHNIQUE: 3 views. FINDINGS: Bones: Normal. No fractures or bone lesions. Joints: Normal. No effusion. No subluxation. Soft Tissues: Normal. No soft tissue swelling. IMPRESSION: Negative x-rays left elbow. RADIA
--- NOTE | 2018-11-08 22:22 | XRAY Report ---
Reason: fall, pain Procedure Date: 11/08/2018 Accession Number: [id number] / [id number] Procedure: XR - Knee 4 View BILAT CPT Code: FULL RESULT: EXAMS: 1. Right Knee Radiography 2. Left Knee Radiography EXAM DATE:11/08/2018 09:28 PM. CLINICAL HISTORY:Fall, pain. COMPARISON: KNEE 4 VIEW LT 10/07/2018 1:35 AM. TECHNIQUE: 3 views each. FINDINGS: Right Knee: Bones: Normal. No fractures or bone lesions. Joints: Normal. No effusion. No subluxations. Soft Tissues: Normal. No soft tissue swelling. Left Knee: Bones: Normal. No fractures or bone lesions. Joints: Normal. No effusion. No subluxations. Soft Tissues: Normal. No soft tissue swelling. IMPRESSION: No acute bony abnormality. RADIA
[2018-11-08] MEDS ORDERED: TETANUS/DIPHTHERIA/PERTUSSIS 0.5 ML SYRINGE IM ONE (22:33)
[2018-11-08 22:46] VITALS: BP 109/79
== END 2018-11-08 22:44 | disposition home or self-care (01) ==
LOC: ED 20:49
DX: S40.022A Contusion of left upper arm, initial encounter (principal); S80.02XA Contusion of left knee, initial encounter; W18.30XA Fall on same level, unspecified, initial encounter; Y93.01 Activity, walking, marching and hiking; Y92.000 Kitchen of unspecified non-institutional (private) residence as the place of occurrence of the external cause; Z23 Encounter for immunization
CPT/HCPCS: 73080; 73564; 90471; 90715; 99283; A9270

== ENCOUNTER 2019-09-06 23:41 | Emergency (ER) | payer OTHER, MEDICAID ==
--- NOTE | 2019-09-06 23:51 | ED Physician Documentation ---
PD HPI CHEST PAIN - Stated complaint Stated Complaint: CP - History obtained from History obtained from: Patient - History of Present Illness Timing - onset: Yesterday Timing - onset during: Rest Timing - duration: Hours Timing - details: Abrupt onset, Intermittant Pain level now: 4 Quality: Pain Location: Substernal, Left chest Radiation: Other (left axilla) Improved by: Nothing Worsened by: Inspiration Associated symptoms: No: Shortness of air, Diaphoresis, Nausea, Vomiting, Palpitations, Cough Similar symptoms before: Has not had sx before Recently seen: Not recently seen Review of Systems Constitutional: reports: Reviewed and negative Cardiac: reports: Chest pain / pressure. 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 : None HEENT: None Psych: None Musculoskeletal: None Derm: None - Past Surgical History Past Surgical History: Yes General: Cholecystectomy, Other /PRECISION ASSEMBLER BENCH: Tubal ligation - Present Medications Home Medications: Ambulatory Orders Medication Instructions Recorded Confirmed Hydrocodone/Acetaminophen 1 - 2 each PO Q6H PRN #14 tablet 11/08/18 [Hydrocodon-Acetaminophen 5-325] Levothyroxine [Synthroid] 150 mcg PO QDAC 11/08/18 11/08/18 Lidocaine Viscous 2% [Xylocaine 15 ml PO TID #1 bottle 09/07/19 Viscous 2%] Oxycodone HCl/Acetaminophen 1 - 2 each PO Q6H PRN #14 tablet 09/07/19 [Percocet 5-325 mg Tablet] - Allergies Allergies/Adverse Reactions: Allergies Allergy/AdvReac Type Severity Reaction Status Date / Time duloxetine [From Cymbalta] Allergy Hives Verified 11/08/18 20:55 Penicillins Allergy Hives Verified 11/08/18 20:55 tramadol AdvReac Unknown Verified 11/08/18 20:55 - Social History Does the pt smoke?: No Smoking Status: Never smoker Does the pt drink ETOH?: No Does the pt have substance abuse?: No - Immunizations Immunizations are current?: Yes - POLST Patient has POLST: No PD ED PE NORMAL - Vitals Vital signs reviewed: Yes - General General: Alert and oriented X 3, No acute distress, Well developed/nourished - Neck Neck: Supple, no meningeal sign - Cardiac Cardiac: RRR, No murmur, No gallop, No rub - Respiratory Respiratory: No respiratory distress, Clear bilaterally - Abdomen Abdomen: Soft, Non tender - Extremities Extremities: No edema Results - Vitals Vitals: Oxygen O2 Source Room air - EKG (time done) No standard instances Rate: Rate (enter#) (74) Rhythm: NSR [place]: LAD (borderline) Intervals: Normal [place], Prolonged QT (borderline) QRS: Normal Ischemia: Normal ST segments - Labs Labs: Laboratory Tests 09/07/19 09/07/19 09/07/19 00:04 00:04 00:04 WBC 10.3 RBC 5.09 Hgb 15.2 Hct 45.5 MCV 89.4 MCH 29.9 MCHC 33.4 RDW 16.3 H Plt Count 279 MPV 9.8 Neut # (Auto) 5.8 Lymph # (Auto) 3.8 H [place] # (Auto) 0.5 Eos # (Auto) 0.2 Baso # (Auto) 0.1 Absolute Nucleated RBC 0.00 Nucleated RBC % 0.0 D-Dimer < 200.0 L Sodium 141 Potassium 3.5 Chloride 105 Carbon Dioxide 27 Anion Gap 9.0 BUN 12 Creatinine 0.9 Estimated GFR (MDRD) 69 L Glucose 102 H Calcium 8.5 Total Bilirubin 0.6 AST 18 ALT 13 Alkaline Phosphatase 45 Troponin I High Sens Total Protein 8.2 Albumin 4.5 Globulin 3.7 Albumin/Globulin Ratio 1.2 Lipase 48 09/07/19 00:04 WBC RBC Hgb Hct MCV MCH MCHC RDW Plt Count MPV Neut # (Auto) Lymph # (Auto) [place] # (Auto) Eos # (Auto) Baso # (Auto) Absolute Nucleated RBC Nucleated RBC % D-Dimer Sodium Potassium Chloride Carbon Dioxide Anion Gap BUN Creatinine Estimated GFR (MDRD) Glucose Calcium Total Bilirubin AST ALT Alkaline Phosphatase Troponin I High Sens < 2.3 L Total Protein Albumin Globulin Albumin/Globulin Ratio Lipase - Rads (name of study) chest xray Radiology: Prelim report reviewed, See rad report PD MEDICAL DECISION MAKING - ED course Complexity details: reviewed old records, reviewed results, re-evaluated patient, considered differential, d/w patient Departure - Departure Disposition: 01 Home, Self Care Clinical Impression: Chest pain Condition: Good Instructions: ED Chest Pain Atypical Unkn Cause Prescriptions: Lidocaine Viscous 2% [Xylocaine Viscous 2%] 15 ml PO TID #1 bottle Oxycodone HCl/Acetaminophen [Percocet 5-325 mg Tablet] 1 - 2 each PO Q6H PRN #14 tablet PRN Reason: pain Discharge Date/Time: 09/07/19 03:32
[2019-09-07 00:18] LABS: BASOPHILS # (AUTO) 0.1 10^3/uL (0.0-0.1); BASOPHILS % (AUTO) 0.7 %; EOSINOPHILS # (AUTO) 0.2 10^3/uL (0.0-0.7); EOSINOPHILS % (AUTO) 1.6 %; HGB - HEMOGLOBIN 15.2 g/dL (12.0-16.0); LYMPHOCYTES # (AUTO) 3.8 10^3/uL (1.5-3.5); LYMPHOCYTES % (AUTO) 36.5 %; MEAN CORPUSCULAR HEMOGLOBIN 29.9 pg (27.0-31.0); MEAN CORPUSCULAR HGB CONC 33.4 g/dL (32.0-36.0); MEAN CORPUSCULAR VOLUME 89.4 fL (81.0-99.0); MEAN PLATELET VOLUME 9.8 fL (7.9-10.8); MONOCYTES # (AUTO) 0.5 10^3/uL (0.0-1.0); NEUTROPHILS # (AUTO) 5.8 10^3/uL (1.5-6.6); NEUTROPHILS % (AUTO) 55.7 %; PLT - PLATELET COUNT 279 10^3/uL (130-450); RED BLOOD COUNT 5.09 10^6/uL (4.20-5.40); RED CELL DISTRIBUTION WIDTH 16.3 % (12.0-15.0); WHITE BLOOD COUNT 10.3 x10^3/uL (4.8-10.8)
[2019-09-07] MEDS ORDERED: KETOROLAC 30 MG/ML VIAL IVP STA (00:19)
[2019-09-07 00:27] LABS: ALBUMIN 4.5 g/dL (3.2-5.5); ALBUMIN/GLOBULIN RATIO 1.2 (1.0-2.2); BILIRUBIN,TOTAL 0.6 mg/dL (0.2-1.0); CALCIUM 8.5 mg/dL (8.5-10.3); CREATININE 0.9 mg/dL (0.4-1.0); TOTAL PROTEIN 8.2 g/dL (6.7-8.2)
[2019-09-07] MEDS ORDERED: MORPHINE 2 MG/ML CARPUJECT IVP STA (01:10)
[2019-09-07] MEDS ORDERED: ONDANSETRON 4 MG/2 ML VIAL IVP STA (01:26)
--- NOTE | 2019-09-07 01:41 | XRAY Report ---
Reason: chest pain Procedure Date: 09/07/2019 Accession Number: [id number] / [id number] Procedure: XR - Chest 2 View X-Ray CPT Code: 82309 Final Report FULL RESULT: EXAM: CHEST RADIOGRAPHY EXAM DATE: 09/07/2019 01:04 AM. CLINICAL HISTORY: Chest pain. COMPARISON: None. TECHNIQUE: 2 views. FINDINGS: Lungs/Pleura: No focal opacities evident. No pleural effusion. No pneumothorax. Normal volumes. Mediastinum: Heart and mediastinal contours are unremarkable. Other: None. IMPRESSION: Normal 2-view chest radiography. RADIA
[2019-09-07] MEDS ORDERED: LIDOCAINE VISCOUS 2% 15 ML UDC MM STA (02:04)
[2019-09-07] MEDS ORDERED: HYDROmorphone 1 MG/ML CARPUJECT IVP STA (02:04)
[2019-09-07] MEDS ORDERED: MAG HYDROX/AL HYDROX/SIMETH 30 ML UDC PO STA (02:04)
[2019-09-07 03:23] VITALS: BP 106/84
== END 2019-09-07 03:32 | disposition home or self-care (01) ==
LOC: ED 23:41
DX: R07.9 Chest pain, unspecified (principal); R94.31 Abnormal electrocardiogram [ECG] [EKG]
CPT/HCPCS: 36415; 71046; 80053; 83690; 84484; 85025; 85379; 93005; 96374; 96375; 99284; A9270; J1170

== ENCOUNTER 2021-08-25 08:00 | Outpatient (CLI) | payer OTHER ==
[2021-08-25 18:01] LABS: BASOPHILS # (AUTO) 0.1 10^3/uL (0.0-0.1); BASOPHILS % (AUTO) 0.7 %; EOSINOPHILS # (AUTO) 0.1 10^3/uL (0.0-0.7); EOSINOPHILS % (AUTO) 1.1 %; HCT - HEMATOCRIT 44.5 % (37.0-47.0); HGB - HEMOGLOBIN 14.9 g/dL (12.0-16.0); LYMPHOCYTES # (AUTO) 3.2 10^3/uL (1.5-3.5); LYMPHOCYTES % (AUTO) 34.9 %; MEAN CORPUSCULAR HEMOGLOBIN 29.8 pg (27.0-31.0); MEAN CORPUSCULAR HGB CONC 33.5 g/dL (32.0-36.0); MONOCYTES # (AUTO) 0.4 10^3/uL (0.0-1.0); MONOCYTES % (AUTO) 4.6 %; NEUTROPHILS # (AUTO) 5.3 10^3/uL (1.5-6.6); NEUTROPHILS % (AUTO) 58.3 %; PLT - PLATELET COUNT 265 10^3/uL (130-450); RED CELL DISTRIBUTION WIDTH 15.9 % (12.0-15.0); WHITE BLOOD COUNT 9.1 x10^3/uL (4.8-10.8)
[2021-08-25 19:15] LABS: ALBUMIN 4.4 g/dL (3.2-5.5); ALBUMIN/GLOBULIN RATIO 1.3 (1.0-2.2); ALKALINE PHOSPHATASE 41 IU/L (42-121); ALT ALANINE AMINOTRANSFERASE 20 IU/L (10-60); AST ASPARTATE AMINOTRANSFERASE 24 IU/L (10-42); BILIRUBIN,TOTAL 0.5 mg/dL (0.2-1.0); BUN - BLOOD UREA NITROGEN 13 mg/dL (6-20); CALCIUM 8.9 mg/dL (8.5-10.3); CARBON DIOXIDE - CO2 27 mmol/L (21-32); CHLORIDE 102 mmol/L (101-111); CHOL/HDL RATIO 4.5 (<4.4); CHOLESTEROL 295 mg/dL; CREATININE 0.9 mg/dL (0.4-1.0); GFR - MDRD 68 (>89); GLUCOSE 83 mg/dL (70-100); HDL CHOLESTEROL 65 mg/dL; LDL CHOLESTEROL,CALCULATED 192 mg/dL; POTASSIUM 3.8 mmol/L (3.5-5.0); SODIUM 139 mmol/L (135-145); TOTAL PROTEIN 7.9 g/dL (6.7-8.2); TRIGLYCERIDES 189 mg/dL; VLDL CHOLESTEROL 38 mg/dL
[2021-08-25 19:36] LABS: THYROID STIMULATING HORMONE 87.07 uIU/mL (0.34-5.60)
[2021-08-25 20:18] LABS: FREE T4 (FREE THYROXINE) < 0.25 ng/dL (0.58-1.64)
== END 2021-08-25 23:59 | disposition home or self-care (01) ==
LOC: LAB.WCP 08:00
PROVIDERS: ATTEND Family Medicine
DX: Z00.00 Encounter for general adult medical examination without abnormal findings (principal); Z85.850 Personal history of malignant neoplasm of thyroid
CPT/HCPCS: 36415; 80053; 80061; 83721; 84432; 84439; 84443; 85025; 86800

== ENCOUNTER 2021-09-03 12:49 | Outpatient (CLI) | payer OTHER ==
--- NOTE | 2021-09-03 17:31 | Ultrasound Report ---
PROCEDURE: Head or Neck Soft Tissue INDICATIONS: HIST OF THYROID CA TECHNIQUE: Real-time scanning was performed of the thyroid gland, with image documentation. COMPARISON: None FINDINGS: Right: Thyroid lobe measures 1.2 x 1.3 x 1.0 cm, and is homogeneous in echotexture. Left: Surgically absent. Isthmus: Surgically absent. No thyroid nodules identified. IMPRESSION: 1. Status post surgical resection of left thyroid lobe and thyroid isthmus. 2. No thyroid nodules or abnormal mass is identified. No sonographic evidence of recurrent thyroid ca rcinoma. ACR TI-RADS definitions and recommendations: TI-RADS 1 (benign): 0 points. FNA not needed. TI-RADS 2 (not suspicious): 2 points. FNA not needed. TI-RADS 3 (mildly suspicious): 3 points. "FNA if 2.5 cm or larger, follow up if 1.5 cm or larger (at 1, 3, and 5 years). TI-RADS 4 (moderately suspicious): 4-6 points. "FNA if 1.5 cm or larger, follow up if 1 cm or larger (at 1, 2, 3, and 5 years). TI-RADS 5 (highly suspicious): 7 points or more. "FNA if 1 cm or larger, follow up if 0.5 cm or larger (every year for 5 years). Reviewed by: Malinda Tadeo MD, PhD on 09/03/2021 5:30 PM PDT Approved by: Malinda Tadeo MD, PhD on 09/03/2021 5:30 PM PDT Station ID: [id number]
== END 2021-09-03 12:50 | disposition home or self-care (01) ==
LOC: DI 12:49
PROVIDERS: ATTEND Family Medicine
DX: Z08 Encounter for follow-up examination after completed treatment for malignant neoplasm (principal); Z85.850 Personal history of malignant neoplasm of thyroid

== ENCOUNTER 2021-11-23 14:52 | Outpatient (CLI) | payer OTHER ==
[2021-11-23 18:39] LABS: FERRITIN 28.9 ng/mL (11.0-306.8)
[2021-11-23 21:43] LABS: THYROID STIMULATING HORMONE 77.13 uIU/mL (0.34-5.60)
[2021-11-23 22:24] LABS: FREE T4 (FREE THYROXINE) 0.26 ng/dL (0.58-1.64)
== END 2021-11-23 23:59 | disposition home or self-care (01) ==
LOC: LAB.WCP 14:52
PROVIDERS: ATTEND Family Medicine
DX: E89.0 Postprocedural hypothyroidism (principal); G25.81 Restless legs syndrome
CPT/HCPCS: 36415; 82728; 84439; 84443

== ENCOUNTER 2022-10-12 21:45 | Outpatient (CLI) | payer OTHER ==
--- NOTE | 2022-10-13 16:30 | XRAY Report ---
PROCEDURE: Lumbar Spine Complete INDICATIONS: RIGHT SCIATICA TECHNIQUE: 4 views of the lumbar spine were acquired. COMPARISON: None. FINDINGS: Bones: 5 [id number] vertebrae are present. There is trace retrolisthesis of L5 on S1. Mild for aminal narrowing as well as moderate disc space narrowing are present at L5-S1. No vertebral body com pression fractures. No suspicious bony lesions. Soft tissues: Overlying bowel gas pattern is normal. No suspicious soft tissue calcifications. IMPRESSION: Early degenerative changes most notable at L5-S1. Reviewed by: Nayana Bojorquez MD on 10/13/2022 4:29 PM PST Approved by: Nayana Bojorquez MD on 10/13/2022 4:29 PM PST Station ID: [id number]
--- NOTE | 2022-10-13 16:30 | XRAY Report ---
PROCEDURE: Wrist 4 View LT INDICATIONS: LEFT WRIST PAIN TECHNIQUE: 4 views of the wrist were acquired. COMPARISON: None FINDINGS: Bones: No fractures or dislocations. No suspicious bony lesions. Scaphoid view: No visualized fracture. Soft tissues: No suspicious soft tissue calcifications. IMPRESSION: No visualized acute fracture or dislocation. However, occult injury cannot be excluded. Recommend ann rt interval imaging follow-up in 7-10 days as clinically indicated for additional evaluation. Reviewed by: Nayana Bojorquez MD on 10/13/2022 4:28 PM PST Approved by: Nayana Bojorquez MD on 10/13/2022 4:28 PM [facility] Station ID: [id number]
== END 2022-10-12 21:46 | disposition home or self-care (01) ==
LOC: DI 21:45
PROVIDERS: ATTEND Physician Assistant
DX: M25.532 Pain in left wrist (principal); M54.31 Sciatica, right side; M43.17 Spondylolisthesis, lumbosacral region; M48.07 Spinal stenosis, lumbosacral region

== ENCOUNTER 2023-06-09 12:21 | Outpatient (CLI) | payer OTHER ==
--- NOTE | 2023-06-12 11:25 | Mammography Report ---
BILATERAL DIGITAL DIAGNOSTIC MAMMOGRAM 3D/2D: 06/09/2023 CLINICAL: Diffuse left breast pain. Due for bilateral exam. Comparison is made to exams dated: 03/05/2014 mammogram and 02/26/2014 mammogram - [facility]. Both breasts are almost entirely fatty (category a/<25% glandular tissue). No significant masses, calcifications, or other findings are seen in either breast. IMPRESSION: NEGATIVE There is no mammographic abnormality seen in the left breast to correspond with the now-resolved palp able abnormality, however, clinical followup is recommended. There is no mammographic evidence of malignancy. A 1 year screening mammogram is recommended. Based on the Tyrer Cuzick model (a risk assessment model) the patients lifetime risk is 4.4% and her 10 year risk is 0.7%. According to the ACR, ACS, and NCCN guidelines, an annual breast MRI exam kate g with mammogram is recommended if the patients lifetime risk is 20% or greater. This exam was interpreted at Station ID: [id number]. NOTE: For mammograms, a report in lay terms will be sent to the patient. Approximately 15% of breast malignancies will not be visualized mammographically. In the management of a palpable breast mass, a negative mammogram must not discourage biopsy of a clinically suspicious lesion. Electronically Signed By: Mercedes Ramos M.D. lk/:06/09/2023 13:07:40 ACR BI-RADS Category 1: Negative 3341F PARENCHYMAL PATTERN: (F) - The breast(s) demonstrate(s) diffuse fatty replacement. BI-RADS CATEGORY: (1) - 1 Mammogram [id number] 1 year screening LATERALITY: (B)
== END 2023-06-09 12:22 | disposition home or self-care (01) ==
LOC: DI 12:21
PROVIDERS: ATTEND Internal Medicine
DX: N64.4 Mastodynia (principal)

== ENCOUNTER 2023-06-09 13:12 | Outpatient (CLI) | payer OTHER ==
[2023-06-09] MEDS ORDERED: iohexoL-300 100 ML VIAL IVP ONE (21:00)
--- NOTE | 2023-06-11 09:56 | CT Report ---
PROCEDURE: SOFT TISSUE NECK W INDICATIONS: PAPILLARY THYROID CA CONTRAST: 100ml omni 300 TECHNIQUE: After the administration of intravenous contrast, 3.0 mm axial sections acquired from the sella to th e aortic arch. Additional oblique axial 3.0 mm sections acquired through the pharynx. 3 mm thick co luis reformats were generated. For radiation dose reduction, the following was used: automated exp osure control, adjustment of mA and/or kV according to patient size. COMPARISON: Ultrasound dated 06/09/2023 FINDINGS: Image quality: Excellent. Lymph nodes: No enlarged lymph nodes seen throughout the neck. Vessels: Visualized vasculature appears patent. Neck spaces: The oropharynx, nasopharynx, and pharynx demonstrate no mucosal lesions. The vocal cor ds, false vocal cords, pyriform sinuses, epiglottis, vallecula, and tongue base all appear normal. E xtramucosal spaces appear unremarkable. Glands: The parotid and submandibular glands appear normal. Patient appears to be status post left thyroidectomy. Remaining right lobe measuring 13 mm is present. Miscellaneous: Visualized brain and orbits appear normal. Lung apices appear clear. Superficial so ft tissues appear normal. Bones: No suspicious bony lesions. Visualized sinuses and mastoids appear unremarkable. IMPRESSION: 1. Post surgical sequelae. 2. No evidence of malignancy. CLINICAL RECOMMENDATION STATEMENTS: In patients <35 years with an ITN detected on CT, MRI, or extrathyroidal ultrasound, the Committee re commends further evaluation with dedicated thyroid ultrasound if the nodule is "e1 cm and has no susp icious imaging features, and if the patient has normal life expectancy. In patients "e35 years with an ITN detected on CT, MRI, or extrathyroidal ultrasound, the Committee r ecommends further evaluation with dedicated thyroid ultrasound if the nodule is "e1.5 cm and has no s uspicious imaging features, and if the patient has normal life expectancy. (ACR, 2014) Reviewed by: Holden Andrew MD on 06/11/2023 9:55 AM PDT Approved by: Holden Andrew MD on 06/11/2023 9:55 AM PDT Station ID: [id number]
--- NOTE | 2023-06-11 09:58 | CT Report ---
PROCEDURE: CHEST W INDICATIONS: PAPILLARY THYROID CA CONTRAST: 100ml omni 300 TECHNIQUE: After the administration of intravenous contrast, 1 mm axial images were acquired from the pulmonary apices through the posterior costophrenic angles. Axial 5 mm soft tissue kernel reconstructions were performed as well as 8 mm axial MIP and coronal and sagittal 5 mm reformations. For radiation dose reduction, the following was used: automated exposure control, adjustment of mA and/or kV according to patient size. COMPARISON: None. FINDINGS: Image quality: Excellent. Lungs and pleura: No consolidation. No pleural effusions. No pneumothorax. No suspicious pulmonary n odules which require follow up. Mediastinum: Heart size is normal. No pericardial effusion. No large vessel abnormality. No mediastin al adenopathy by size criteria. Chest wall and lower neck: Thyroid is unremarkable. No axillary or supraclavicular adenopathy by size . Bones: No aggressive osseous abnormality. Upper Abdomen: Unremarkable. IMPRESSION: No evidence of malignancy. Reviewed by: Holden Andrew MD on 06/11/2023 9:56 AM PDT Approved by: Holden Andrew MD on 06/11/2023 9:56 AM PDT Station ID: [id number]
== END 2023-06-09 13:13 | disposition home or self-care (01) ==
LOC: DI 13:12
PROVIDERS: ATTEND Internal Medicine
DX: C73 Malignant neoplasm of thyroid gland (principal); R22.2 Localized swelling, mass and lump, trunk; N64.4 Mastodynia
CPT/HCPCS: 70491; 71260; Q9967